=== PATIENT | female | born 1955 | race Caucasian/White ===

== ENCOUNTER 2017-12-18 10:10 | Day surgery (SDC) | payer OTHER ==
[2017-12-18] MEDS ORDERED: MAPA500T13 PO (10:51)
[2017-12-18] MEDS ORDERED: LISI10TA3 PO (10:51)
[2017-12-18] MEDS ORDERED: SODIUM CHLOR 0.9% 1000 ML IV SCH (11:00)
== END 2017-12-18 11:40 | disposition home or self-care (01) ==
LOC: HRAD 10:10 → HRIP 10:12 → HRAD 11:40
PROVIDERS: ATTEND Internal Medicine Hematology & Oncology
DX: E27.9 Disorder of adrenal gland, unspecified (principal)

== ENCOUNTER 2017-12-25 09:58 | Day surgery (SDC) | END 2017-12-25 14:11 | disposition home or self-care (01) | DX: E27.9 Disorder of adrenal gland, unspecified (principal); I10 Essential (primary) hypertension; Z85.828 Personal history of other malignant neoplasm of skin | CPT/HCPCS: 60699; 77012; 88305; J2250; J3010 ==